=== PATIENT | female | born 2000 | race African-American/Black ===

== ENCOUNTER 2023-08-06 16:35 | Emergency (ER) | payer OTHER, SELFPAY ==
[2023-08-06 16:41] VITALS: BP 124/74; PULSE 91; RESP 16; TEMP 36.6; O2SAT 100; BMI 24.3
--- NOTE | 2023-08-06 16:45 | DI.RAD.S_ITS ---
PROCEDURE: XR ANKLE LT MIN 3V INDICATIONS: fall, ankle pain TECHNIQUE: 3 views of the ankle were acquired. COMPARISON: None. FINDINGS: Bones: No fractures or dislocations. Ankle mortise is normally aligned. No suspicious bony lesions. Soft tissues: No tibiotalar joint effusion. Achilles tendon appears normal. IMPRESSION: No acute bony abnormality or significant effusion. Dictated by: Marcy Monzon MD, PhD on 08/06/2023 at 17:08 Approved by: Marcy Monzon MD, PhD on 08/06/2023 at 17:08
--- NOTE | 2023-08-06 17:07 | ED_ITS ---
HPI - Extremity Injury (Lower) <Cinthya Mcqueen PA-C - Last Filed: 08/06/23 17:39> General Chief Complaint: Extremity Injury, Lower Stated Complaint: lt ankle injury Time Seen by Provider: 08/06/23 17:03 Source: patient Mode of arrival: Ambulatory History of Present Illness HPI Narrative: 22-year-old female presents to the ED status post an ankle injury sustained from a mechanical fall just prior to arrival. Patient denies numbness, tingling, weakness. Patient is able to bear some weight and walk. Patient reports that it is most painful in the region of the lateral malleolus of the left foot. No other injuries reported. Related Data Allergies Allergy/AdvReac Type Severity Reaction Status Date / Time No Known Drug Allergies Allergy Verified 08/06/23 16:46 Review of Systems <Cinthya Mcqueen PA-C - Last Filed: 08/06/23 17:39> Constitutional Constitutional: Denies chills, Denies fatigue, Denies fever(s), Denies frequent falls, Denies lethargy and Denies weakness Eyes Eyes: Denies change in vision, Denies eye discharge, Denies irritation and Denies loss of vision ENT Ears, Nose, Mouth, and Throat: Denies change in voice, Denies dizziness, Denies neck pain, Denies sore throat and Denies throat swelling Cardiovascular Cardiovascular: Denies chest pain, Denies irregular heart rhythm, Denies lightheadedness, Denies palpitations, Denies dyspnea, Denies dyspnea on exertion and Denies orthopnea Respiratory Respiratory: Denies cough, Denies dyspnea, Denies dyspnea on exertion and Denies wheezing Gastrointestinal Gastrointestinal: Denies abdominal pain, Denies change in bowel habits, Denies diarrhea, Denies nausea and Denies vomiting Musculoskeletal Musculoskeletal: Denies neck pain and Denies numbness Comments: Left ankle pain and swelling Integumentary/Breasts Skin/Breast: Denies pruritus, Denies erythema, Denies rash and Denies wounds Neurologic Neurologic: Denies behavioral changes, Denies confusion, Denies dizziness, Denies frequent falls, Denies loss of vision, Denies numbness and Denies weakness Psychiatric Psychiatric: Denies anxiety, Denies behavioral changes, Denies confusion, Denies depression, Denies homicidal ideation and Denies suicidal ideation Endocrine Endocrine: Denies fatigue, Denies flushing and Denies palpitations Hematologic/Lymphatic Hematologic/Lymphatic: Denies easy bruising Allergic/Immunologic Allergic/Immunologic: Denies urticaria, Denies throat swelling and Denies wheezing Patient History <Cinthya Mcqueen PA-C - Last Filed: 08/06/23 17:39> Social History Smoking Status: Never smoker Smoking Status: Never smoker Exam <Cinthya Mcqueen PA-C - Last Filed: 08/06/23 17:39> Narrative Exam Narrative: Const General:?cooperative, healthy appearing and comfortable [facility] Head:?normal to inspection Ears:?hearing grossly normal bilaterally Nose:?external nose normal Face and sinus:?normal facial exam and sinuses nontender Mouth:?oral mucosae normal Throat:?posterior oropharynx normal Eyes General:?appearance normal, both eyes and all related structures Neck Neck:?normal visual inspection and no lymphadenopathy noted Resp Effort & Inspection:?normal respiratory effort Auscultation:?clear to auscultation bilaterally Cardio Rate:?regular rate Rhythm:?regular rhythm Musculoskeletal There is mild swelling and tenderness to palpation of the lateral malleolus of the left ankle. No tenderness to palpation of the foot. Full range of motion. Strength and sensation intact. Patient is neurovascularly intact. Neuro General:?patient alert, patient awake and patient oriented x3 Initial Vital Signs Initial Vital Signs: Vital Signs Temperature 97.9 F 08/06/23 16:41 Pulse Rate 91 H 08/06/23 16:41 Respiratory Rate 16 08/06/23 16:41 Blood Pressure 124/74 08/06/23 16:41 Pulse Oximetry 100 08/06/23 16:41 Oxygen Delivery Method Room Air 08/06/23 16:41 <Glo Hummel DO - Last Filed: 08/11/23 07:12> Initial Vital Signs Initial Vital Signs: Vital Signs Temperature 97.9 F 08/06/23 16:41 Pulse Rate 91 H 08/06/23 16:41 Respiratory Rate 16 08/06/23 16:41 Blood Pressure 124/74 08/06/23 16:41 Pulse Oximetry 100 08/06/23 16:41 Oxygen Delivery Method Room Air 08/06/23 16:41 Course <Cinthya Mcqueen PA-C - Last Filed: 08/06/23 17:39> Orders Ordered: ED Orders 08/06/23 16:45 XR ankle LT min 3V Stat Vital Signs Vital signs: Vital Signs - 8 hr 08/06/23 16:41 Temperature 97.9 F Pulse Rate 91 H Respiratory Rate 16 Blood Pressure 124/74 Pulse Oximetry 100 Oxygen Delivery Method Room Air <Glo Hummel DO - Last Filed: 08/11/23 07:12> Orders Ordered: ED Orders 08/06/23 16:45 XR ankle LT min 3V Stat Vital Signs Vital signs: Vital Signs - 8 hr 08/06/23 16:41 Temperature 97.9 F Pulse Rate 91 H Respiratory Rate 16 Blood Pressure 124/74 Pulse Oximetry 100 Oxygen Delivery Method Room Air MDM - Extremity Injury (Lower) <Cinthya Mcqueen PA-C - Last Filed: 08/06/23 17:39> MDM Narrative Medical decision making narrative: 22-year-old female presents to the ED status post an ankle injury sustained from a mechanical fall just prior to arrival. Concern for fracture/dislocation versus musculoskeletal sprain/strain. No tenderness to palpation of the foot. Ankle x-ray was obtained which shows no fractures or dislocations or significant effusion. Patient's symptoms most consistent with a musculoskeletal sprain/strain of the ankle. Patient's ankle was Santana wrapped. Recommend RICE. Recommend Tylenol, ibuprofen for pain. Recommend follow-up with PCP as soon as possible. ED return precautions discussed with patient. Patient verbalized understanding. Medical records reviewed: Yes Discharge Plan Departure Patient Disposition: Home Clinical Impression: Ankle sprain and strain Instructions: DI for Ankle Sprain Activity Restrictions/Additional Instructions: You were evaluated in the ED today for a ankle injury. Your x-ray did not show any fractures or dislocations. Your symptoms are consistent with the ankle sprain/strain. Your ankle has been Santana wrapped. Please keep your ankle elevated above heart level, apply ice for the 1st 24 hours, keep the Santana bandage on, rest the ankle. After 24 hours you may start applying heat packs. You may take Tylenol, ibuprofen for pain. Please follow-up with your PCP as soon as possible. Return to the ED if you have worsening symptoms, numbness, tingling, weakness. Referrals: ProviderOfelia [Primary Care Provider] - Stand Alone Forms: Patient Portal/API ED Sign-out <Glo C Mank, DO - Last Filed: 08/11/23 07:12> Cosign ED Attending Elainaature Attestation: I was immediately available in the department for consultation.
== END 2023-08-06 17:41 | disposition home or self-care (01) ==
PROVIDERS: Emergency Provider Student in an Organized Health Care Education/Training Program
DX: S93.402A Sprain of unspecified ligament of left ankle, initial encounter (principal); S96.912A Strain of unspecified muscle and tendon at ankle and foot level, left foot, initial encounter; W19.XXXA Unspecified fall, initial encounter
CPT/HCPCS: 73610; 99281; 99283